=== PATIENT | female | born 1995 | race Two or more races ===

== ENCOUNTER 2020-05-19 11:34 | Emergency (ER) | payer MEDICAID ==
[~2020-05-19] VITALS: Ht 162.6 cm; Wt 84.4 kg
[2020-05-19 11:57] VITALS: BP 129/86
[2020-05-19] MEDS ORDERED: LIDOCAINE-MPF 1%, 5ML ONE (12:12)
[2020-05-19] MEDS ORDERED: BUPIVACAINE 0.25% ONE (12:13)
[2020-05-19] MEDS ORDERED: BUPIVACAINE/PF-EPI 0.25% 1:200K SQ ONE (12:30)
[2020-05-19] MEDS ORDERED: LIDOCAINE-MPF 1%, 5ML INFIL ONE (12:30)
--- NOTE | 2020-05-19 13:03 | NUR ---
dental block provided by ADRIAN Gardner, pt states dental pain greatly improved. pt a&o, resps even and unlabored, awaiting dc.
--- NOTE | 2020-05-19 13:12 | NUR ---
pt given dc instructions and script, ambulatory to dc desk with steady gait.
== END 2020-05-19 13:13 | disposition home or self-care (01) ==
LOC: ED 13:05
DX: K02.9 Dental caries, unspecified (principal); F17.200 Nicotine dependence, unspecified, uncomplicated
CPT/HCPCS: 64400; 99284

== ENCOUNTER 2021-01-17 03:53 | Emergency (ER) | payer SELFPAY ==
[~2021-01-17] VITALS: Ht 162.6 cm; Wt 74.0 kg
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
[2021-01-17 03:56] VITALS: BP 137/87
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
== END 2021-01-17 05:07 | disposition home or self-care (01) ==
LOC: ED 04:23
DX: S00.11XA Contusion of right eyelid and periocular area, initial encounter (principal); J45.909 Unspecified asthma, uncomplicated; F17.200 Nicotine dependence, unspecified, uncomplicated; W01.0XXA Fall on same level from slipping, tripping and stumbling without subsequent striking against object, initial encounter; Y93.89 Activity, other specified; Y92.89 Other specified places as the place of occurrence of the external cause; Y99.8 Other external cause status
CPT/HCPCS: 99283